=== PATIENT | male | born 1985 | race Caucasian/White ===

== ENCOUNTER → 2016-10-30 | Outpatient (CLI) | payer OTHER ==
--- NOTE | 2016-10-30 18:12 | REP ---
Clinical: Chest pain and shortness of breath. Technique: PA and lateral. Comparison: 09/29/2007. Findings: Moderate bibasilar atelectasis and small pleural reactions consistent with acute bronchitis. Mediastinum and cardiac silhouette normal. No significant effusion. No pneumothorax. Skeletal structures intact. Impression: Acute bronchitis with bibasilar atelectasis and small pleural reactions. Signed by Jonah Sinclair MD 10/30/2016 06:03 P
== END ==
LOC: M ADAMS 17:23
PROVIDERS: ATTEND Physician Assistant Medical
DX: R07.9 Chest pain, unspecified (principal)

== ENCOUNTER 2016-11-16 09:09 | Emergency (ER) | payer OTHER ==
[~2016-11-16] VITALS: Ht 170.2 cm; Wt 82.1 kg
[2016-11-16 09:09] VITALS: BP 157/91
[2016-11-16] MEDS ORDERED: probiotics (09:16)
[2016-11-16] MEDS ORDERED: ALEV220T26 PO (09:16)
--- NOTE | 2016-11-16 09:57 | REP ---
CHEST PA AND LATERAL: 11/16/2016. Comparison 09/29/2007. Clinical history: Chest wall pain, recent bronchitis. Findings: Two-view show the lungs hypoinflated. There is some atelectatic change at the right base but more extensive atelectasis and infiltrate with effusion on the left. Effusion may be partly loculated laterally. There is no cardiomegaly or edema. Impression: 1. Left base infiltrates involving the lingula and lower lobe with small to moderate left effusion. It may in part be loculated. 2. Some atelectatic change on the right above the diaphragm but mild. No cardiomegaly or edema. Signed by Cam Carney MD 11/16/2016 03:01 P
[2016-11-16] MEDS ORDERED: ZITHTAB PO (10:12)
[2016-11-16] MEDS ORDERED: AZITHROMYCIN 250 MG TAB PO ONE (10:15)
== END 2016-11-16 10:24 | disposition home or self-care (01) ==
LOC: M ED 10:13
DX: J18.9 Pneumonia, unspecified organism (principal)

== ENCOUNTER 2017-01-22 07:07 | Observation (INO) | payer OTHER ==
[~2017-01-22] VITALS: Ht 170.2 cm; Wt 83.5 kg
[~2017-01-22 07:07] MED LIST: ALEV220T26 PO; ZITHTAB PO; probiotics
[2017-01-22 07:54] LABS: BASO % 0.2 % (0.0-1.0); EOS # 0.1 K/mm3 (0.0-0.50); EOS % 1.8 % (0.0-3.0); LARGE UNSTAINED CELL # 0.1 K/mm3 (0.0-0.4); LARGE UNSTAINED CELL % 0.8 % (0.0-4.0); LYMPH # 1.1 K/mm3 (1.5-4.5); LYMPH % 13.4 % (24.0-44.0); MEAN CORPUSCULAR HEMOGLOBIN 30.9 pg (27.0-33.0); MEAN CORPUSCULAR HGB CONC 35.9 g/dl (32.0-36.5); MEAN CORPUSCULAR VOLUME 86.1 fl (80.0-96.0); MONO # 0.5 K/mm3 (0.0-0.8); NEUTROPHILS # 6.3 K/mm3 (1.8-7.7); NEUTROPHILS % 77.8 % (36.0-66.0); PLATELET COUNT, AUTOMATED 178 k/mm3 (150-450); RED CELL DISTRIBUTION WIDTH 13.5 % (11.5-14.5); WHITE BLOOD COUNT 8.1 K/mm3 (4.0-10.0)
--- NOTE | 2017-01-22 07:54 | REP ---
Clinical: Chest pain. Comparison: 11/16/2016. Findings: Bibasilar linear fibroatelectatic changes and right lower lobe infiltrate/atelectasis suggest acute / chronic findings when compared to prior examination. No obvious effusion. No pneumothorax. Mediastinum and cardiac silhouette stable and within normal limits. Impression: Acute and/or chronic bilateral atelectasis and right lower lobe infiltrate cannot be excluded. Signed by Jonah Sinclair MD 01/22/2017 07:45 A
[2017-01-22 08:03] LABS: INR 0.99
[2017-01-22 08:14] LABS: ALBUMIN 3.9 GM/DL (3.2-5.2); ALBUMIN/GLOBULIN RATIO 0.89 (1.00-1.93); ALKALINE PHOSPHATASE 98 U/L (45-117); ALT/SGPT 39 U/L (12-78); ANION GAP 5 MEQ/L (8-16); AST/SGOT 20 U/L (15-37); BILIRUBIN,DIRECT 0.2 MG/DL (0.0-0.2); BLOOD UREA NITROGEN 11 MG/DL (7-18); CALCIUM LEVEL 9.1 MG/DL (8.5-10.1); CARBON DIOXIDE LEVEL 27 MEQ/L (21-32); CHLORIDE LEVEL 105 MEQ/L (98-107); CREATININE FOR GFR 0.96 MG/DL (0.70-1.30); FREE T4 0.93 NG/DL (0.76-1.46); GLOMERULAR FILTRATION RATE > 60.0 (>60); GLUCOSE, FASTING 111 MG/DL (70-105); POTASSIUM SERUM 3.6 MEQ/L (3.5-5.1); SODIUM LEVEL 137 MEQ/L (136-145); TOTAL PROTEIN 8.3 GM/DL (6.4-8.2)
[2017-01-22] MEDS ORDERED: ACETAMINOPHEN 325 MG TAB PO ONE (08:30)
[2017-01-22] MEDS ORDERED: ISOVUE-370 76% 100ML VIAL (Q9967) As Ordered ONE ×2 (08:36→10:46)
--- NOTE | 2017-01-22 09:29 | ECGEPIP ---
Stationary ECG Study [facility] - ED Test Date: 2017-01-22 Pat Name: DILLAN STOUT Department: Room: - Gender: M Recreation Therapist: sb : [id number] Requested By: Jack Stern Order Number: [id number] Reading MD: Petty Koo Measurements Intervals [place] Rate: 103 P: 45 TX: 143 QRS: 46 QRSD: 108 T: 10 QT: 341 QTc: 446 Interpretive Statements SINUS TACHYCARDIA NONSPECIFIC T-WAVE ABNORMALITY ABNORMAL RHYTHM ECG NO PRIOR FOR COMPARISON Electronically Signed On 01-22-2017 9:28:58 EDT by Petty Koo
[2017-01-22] MEDS ORDERED: NS 1,000 ML IV ONE (09:30)
--- NOTE | 2017-01-22 09:36 | REP ---
CT ANGIOGRAM CHEST: TECHNIQUE: Axial contrast enhanced images from the thoracic inlet to the upper abdomen using 100 mL Isovue 370 intravenous contrast material with multiplanar reformations. There is excessive patient motion, which extremely limits the exam. I cannot rule out pulmonary embolism. Repeat exam is recommended. There is no definite adenopathy in the chest. The heart is not enlarged. There is no pleural or pericardial effusion. Patchy infiltrates/atelectasis are seen in each lung base. Pleural based nodular opacity in the lingula measures 1.7 cm in diameter and followup is recommended. The visualized upper abdominal structures appear unremarkable. IMPRESSION: Extremely limited exam due to patient motion. I cannot rule out pulmonary embolism. Recommend repeat exam when the patient is able to suspend respirations and remain motionless. Bibasilar infiltrates/atelectasis. Left lingular pleural-based nodular opacity 1.7 cm in diameter. Recommend short-term followup in 2 to 3 months. Signed by Bennie Wright MD 01/22/2017 05:00 P
[2017-01-22] MEDS ORDERED: AZITHROMYCIN INJ 500 MG, VIAL MATE ADAPTER 1 EACH in D5W 250 ML IV ONE (12:15)
[2017-01-22] MEDS ORDERED: cefTRIAXone SOD 1 GM in D5W MINI-BAG PLUS 50 ML IV ONE (12:15)
[2017-01-22] MEDS ORDERED: SYST1SOL OU (13:03)
[2017-01-22] MEDS ORDERED: ONDANSETRON 4MG/2ML VIAL (J2405) IV PRN (14:00)
[2017-01-22] MEDS ORDERED: ELIQ5TAB PO (14:08)
[2017-01-22] MEDS ORDERED: POLYVINYL ALCOHOL OPHTH SOLN 15 ML(LIQUITEARS) OU PRN (14:15)
--- NOTE | 2017-01-22 15:29 | HPE ---
DATE OF ADMISSION: 01/22/2017 PRIMARY CARE PROVIDER: The patient does not have a primary care provider. CHIEF COMPLAINT: Chest discomfort. HISTORY OF PRESENT ILLNESS: Mr. Bernstein is a 31-year-old male with no past medical history, who presented to the emergency room due to experiencing chest pain and discomfort. The patient expressed his symptoms started in mid September when he noticed that he had shortness of breath when he was walking. The patient expressed that the next day he noticed one episode of hemoptysis when he was taking shower; however, the patient did not pay attention to it. The patient also started having left sided chest pain. The patient went to urgent care and was started on Cefdinir for possibility of bronchitis. The patient expressed that a few days after starting Cefdinir he started having diarrhea and he lost about 20 pounds due to having diarrhea. The patient went back to the urgent care due to having left chest pain, as well as coughing. Urgent care encouraged him to go to the hospital. On 11/16/2016, the patient came to the [facility] Emergency room and was diagnosed with pneumonia. The patient was discharged with azithromycin. The patient expressed that after starting this medication, the patient felt better. However, this weekend, the patient noticed that he started having right chest pain. The patient expressed that the right chest pain was 5 or 6 out of 10, achy pain, which increased with activity and taking deep breath. The patient also expressed that he also developed dyspnea, as well as coughing. The patient expressed that he continued to have left chest pain; however, left chest pain was decreased. The patient expressed that he waited because he thought the chest pain would go away; however, it continued to increase. His mother encouraged him to come to the emergency room. The patient denies fever, chills or night sweats. The patient denies lightheadedness or dizziness. The patient denies sick contacts. The patient denies syncope or seizure type activities. The patient also denies rash or lesions anywhere in his body. 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 Also, the patient expressed that the industrial boilers have two layers of isolation which includes Fiberfrax blankets, which are made of silicone, and the patient does not use a mask during his work because he is not required. However, the patient expressed that the factory does not use equipment properly. The patient expressed that for his chest discomfort he was using naproxen sodium 220 mg by mouth as needed for pain. SOCIAL HISTORY: The patient lives with his and his 2-1/2 year old son, who is healthy. The patient denies smoking cigarettes; however, the patient used to chew tobacco, about one can a week for 6 years; however, the patient has not used tobacco for the past year. The patient drinks alcohol occasionally. The patient was smoking marijuana ten years ago for a total of 2 years. The patient has one dog. The patient has traveled to [place] three years ago. The patient is working in the [employer], which includes welding; however, the patient is not participating in the welding station. The patient does not wear a mask because it is not required to wear it. However, the patient expressed that the company also included insulator blankets, which have Fiberfrax blankets, which are made out of silicones. In the factory they do not use the equipment appropriately. FAMILY HISTORY: The patient has one son who is 2-1/2 years old and he is healthy. The patient has two brothers who are healthy. The patient's father due to pulmonary embolism at age 53 secondary to femoral fracture, as well as having liver disease secondary to drinking. The patient's mother is healthy. ALLERGIES: No known allergies. HOME MEDICATIONS: - naproxen sodium 220 mg tablet as needed for pain or fever - polyethylene glycol one drop both eyes as needed for dry eyes. PAST MEDICAL HISTORY: None. PAST SURGICAL HISTORY: Left wrist removal of a ganglion cyst. REVIEW OF SYSTEMS: GENERAL: The patient denies fever, chills, night sweats, weight loss, or weight gain. However, the patient expressed that back at the end of November/beginning of October that the patient has lost about 20 pounds because the patient was on antibiotic (Cefdinir), which caused him to have diarrhea. HEENT: The patient denies acute vision or hearing changes. The patient denies headaches, lightheadedness, or dizziness. The patient also no problems with chewing food or sinusitis. NECK: The patient denies loss of range of motion of his neck. HEART: The patient denies palpitations, racing or skipping heart beat. However , the patient has been experiencing chest pain and discomfort on both left and right sides of his chest pain with right more than left. The patient described the pain as achy, 5 out of 6 with radiation to the back. LUNGS: The patient experienced shortness of breath with cough for the past three days. The patient believes that his cough has increased, as well as shortness of breath; however, he believes that the shortness of breath is because taking a deep breath is painful. ABDOMEN: The patient denies abdominal pain, nausea, vomiting, diarrhea, constipation, melena, hematochezia or hematemesis. NEUROLOGIC: The patient has no history of transient ischemic attack, seizure type activity. PHYSICAL EXAMINATION: VITAL SIGNS: Temperature 97.5, pulse 113, respiratory rate 16, blood pressure 152/94, pulse oximetry 97% on room air. GENERAL APPEARANCE: The patient was lying in bed in no acute distress. The patient was awake, alert and oriented to time, place and person. HEENT: Normocephalic, atraumatic. Pupils are equal and reactive to light. Oral mucosa is moist. NECK: Soft, supple. No lymphadenopathy or thyromegaly. No jugular venous distention (JVD). HEART: Regular rate and rhythm. Normal S1, S2. ABDOMEN: Soft, nontender. Positive bowel sounds in all quadrants. LUNGS: Clear breath sounds bilaterally. Good air movement. CHEST: The patient has tenderness to palpation of his ribcage, mostly on the left than right anterior surface. EXTREMITIES: The patient has very mild pitting edema in both lower extremities. +2 pulses in both lower extremities. The patient has normal range of motion in both upper and lower extremities. The patient has normal strength in both lower extremities. Homans sign was negative. NEUROLOGIC: Cranial nerves were intact. No focal deficiencies. : no palpable mass was notice on testis, also no rash or lesion were notice on scrotum. LABORATORY DATA: White blood cells 8.1, red blood cells 5.52, hemoglobin 17.1, hematocrit 47.6, MCV 86.1, MCH 30.9, MCHC 35.9, RDW 13.5, platelet count 178, neutrophil percentage 77.8, lymphocyte percentage 13.4, monocyte percentage 6.0, basophil percentage 0.2, leukocyte percentage 0.8. PT 13.2, INR 0.99, PTT 25.4, D-dimer 749.8. Sodium 137, potassium 3.6, chloride 105, carbon dioxide 27, anion gap 5, BUN 11, creatinine 0.96, GFR more than 60, fasting glucose 111, calcium 9.1, total bilirubin 0.1, direct bilirubin 0.2, AST 20, ALT 39, alkaline phosphatase 98, total creatinine kinase 160, CK-MB 1, CK-MB relative index 0.62, troponin I less than 0.02, total protein 8.3, albumin 3.9, TSH 1.230, Free T4 0.93. Blood culture is pending at this time. IMAGING TECHNIQUES: Chest x-ray with acute on chronic bilateral atelectasis and right lower lobe infiltration cannot be excluded. CT angio indicated extremely limited exam due to the patient's movement pulmonary embolism cannot be ruled out; however, there is bibasilar infiltration, atelectasis , left inguinal pleural base, nodular opacity 1.7 cm in diameter. Repeat CT angio indicated pulmonary embolism with cut off sign at the origin of the left middle lobe artery, tiny pulmonary embolism in the third order branch of the right upper lobe and the third branch of the right lower lobe and the right middle lobe infiltration and the left lower lobe infiltration. Pleural based mass in the lingual. ASSESSMENT AND PLAN: 1. Chest pain. this is possibly secondary to pulmonary embolism. we have calculated Wells' score, which indicated moderate probability for pulmonary embolism.. At this time, we have started the patient on Eliquis. Also, we have ordered lower extremity ultrasound, result is pending at this time. Also, we have ordered coagulability panel, including lupus type anticoagulation, fibrinogen, factor V Leiden, factor II prothrombin, protein S, protein C, antithrombin III panel. The results are pending. Examination of testes did not indicate any abnormal mass. At this time, we will continue the patient on 10 mg of Eliquis twice a day for 7 days. After that, the patient will be started on 5 mg Eliquis twice a day. However, the patient will be seen by Dr. Mart. Also, cardiac marker was negative and EKG did not show any new findings and it only indicated sinus tachycardia, possibly secondary to pulmonary embolism. However, we will repeat the cardiac marker for two more readings every 6 hours. At this time, we admit the patient for observation. We will continue managing the patient's pain with Percocet and morphine as needed. 2. Left lingual pleural based nodule. CT angio indicated left lingual pleural based nodular opacity of 1.7 cm in diameter. We have consulted Dr. Mart. The patient will be followed by Dr. Mart. 3. Right middle lobe infiltration and left lower lobe infiltration. This is possibly secondary to pulmonary embolism. The patient is afebrile and does not have leukocytosis. The patient is asymptomatic and is on room air. At this time, we did not start patient on antibiotic. 4. Deep vein thrombosis (DVT) prophylaxis. The patient is on Eliquis. 5. Dry eyes: patient is on polyethylene glycol one drop both eyes as needed for dry eyes. My preceptor for this patient encounter was Dr. Lopez. The preceptor was physically present in the building during the encounter and was fully available. As needed, all aspects of the patient interview, examination, medical decision making process, and medical care plan development were reviewed and approved by the preceptor. The preceptor is aware and concurs with the plan as stated in the body of this note and will attest to such by his/her cosignature. Attending note: I have examined this patient independently and reviewed the chart and diagnostic studies. I have had a detailed discussion with the resident regarding the plan as outlined above. All aspects of the history and physical are reflective of our discussion. PADMINI
--- NOTE | 2017-01-22 15:43 | REP ---
HISTORY: History of pulmonary embolus. COMPARISON: None. TECHNIQUE: Multiple ultrasonographic images of the deep venous structures of the bilateral thighs were obtained from the common femoral vein to the popliteal vein along with Doppler interrogation and color flow Doppler images. FINDINGS: There is no abnormal echogenic material seen within any of the visualized deep venous structures that would suggest acute thrombosis. Coaptation is unremarkable throughout. Doppler interrogation shows an expected response to respiratory variability and augmentation. The color flow images show what appears to be a normal vascular pattern throughout. IMPRESSION: There is no ultrasonographic evidence of deep venous thrombosis involving any of the visualized deep venous structures of the bilateral thighs, as described above. Signed by Carson Andre DO 01/22/2017 04:03 P
[2017-01-22] MEDS: PERCOCET 5MG/325MG TAB PO PRN (19:31)
[2017-01-22] MEDS: MORPHINE 2 MG/ML 1ML SYRINGE IV PRN ×2 (19:32→21:37)
[2017-01-22 21:00] VITALS: BP 139/90
[2017-01-22 21:17] VITALS: PULSE 99
[2017-01-22] MEDS: APIXABAN 5 MG TAB (ELIQUIS) PO SCH (21:38)
[2017-01-23] VITALS (9 sets, daily range): BP systolic 107–154; BP diastolic 65–94; PULSE 93–97
[2017-01-23] MEDS: PERCOCET 5MG/325MG TAB PO PRN ×3 (05:18→17:27)
[2017-01-23 05:36] LABS: BASO % 0.2 % (0.0-1.0); EOS # 0.1 K/mm3 (0.0-0.50); EOS % 0.7 % (0.0-3.0); LARGE UNSTAINED CELL # 0.1 K/mm3 (0.0-0.4); LARGE UNSTAINED CELL % 0.7 % (0.0-4.0); LYMPH # 0.9 K/mm3 (1.5-4.5); LYMPH % 8.6 % (24.0-44.0); MEAN CORPUSCULAR HEMOGLOBIN 31.2 pg (27.0-33.0); MEAN CORPUSCULAR HGB CONC 36.3 g/dl (32.0-36.5); MEAN CORPUSCULAR VOLUME 85.8 fl (80.0-96.0); MONO # 0.7 K/mm3 (0.0-0.8); MONO % 6.1 % (0.0-5.0); NEUTROPHILS # 9.2 K/mm3 (1.8-7.7); NEUTROPHILS % 83.7 % (36.0-66.0); PLATELET COUNT, AUTOMATED 196 k/mm3 (150-450); RED CELL DISTRIBUTION WIDTH 13.4 % (11.5-14.5)
[2017-01-23 05:58] LABS: ALBUMIN 3.5 GM/DL (3.2-5.2); ALKALINE PHOSPHATASE 86 U/L (45-117); ALT/SGPT 39 U/L (12-78); ANION GAP 5 MEQ/L (8-16); AST/SGOT 19 U/L (15-37); BILIRUBIN,TOTAL 1.5 MG/DL (0.2-1.0); BLOOD UREA NITROGEN 7 MG/DL (7-18); CALCIUM LEVEL 9.1 MG/DL (8.5-10.1); CARBON DIOXIDE LEVEL 28 MEQ/L (21-32); CHLORIDE LEVEL 104 MEQ/L (98-107); CREATININE FOR GFR 0.89 MG/DL (0.70-1.30); GLOMERULAR FILTRATION RATE > 60.0 (>60); GLUCOSE, FASTING 114 MG/DL (70-105); MAGNESIUM LEVEL 2.3 MG/DL (1.8-2.4); POTASSIUM SERUM 4.5 MEQ/L (3.5-5.1); SODIUM LEVEL 137 MEQ/L (136-145); TOTAL PROTEIN 7.9 GM/DL (6.4-8.2)
[2017-01-23] MEDS: ACETAMINOPHEN TAB 650MG DOSE (2X325MG) PO PRN (07:42)
[2017-01-23] MEDS: APIXABAN 5 MG TAB (ELIQUIS) PO SCH ×2 (07:42→21:10)
[2017-01-23] MEDS ORDERED: ELIQ5TAB PO (12:27)
--- NOTE | 2017-01-23 12:40 | IPNPDOC ---
Text Note Date of Service The patient was seen on 01/23/17. NOTE Subjective: Patient is a 31 year old male with no PMHx who presented to the ER with chest pain / discomfort. Patient has a history of a pneumonia in 11/2016 after he failed to improved as an outpatient. At that point he was came to the ER and was diagnosed with a pneumonia. Since then he has been experiencing chest pain. He came in for evaluation again and was found to have a PE on CTA. He was also noted to have a lung lesion at the pleura of 1.7cm. Patient was seen and examined at the bedside. Currently he notes that the pain is improving with his current medications. Objective: Vitals (See below) General: Lying in bed, no acute distress, comfortable, AAOx3 HEENT: NC, AT CVS: RRR, +S1S2 Lungs: Fair air entry b/l, -w/r/r Abdomen: Soft, ND, NT, +BSx4 Extremities: +PPx4, - Edema, - Calf tenderness Assessment and plan: 1. Chest pain - likely 2/2 Pulmonary embolism - chest pain is resolving / controlled with current pain regimen - physical unrevealing, saturating well and hemodynamically stable - CTA chest 01/22: PE found with cutoff sign at Right middle lobe artery, right middle lobe infiltrate / leb lower lobe infiltrate, pleural based mass in lingula - Hypercoagulability workup pending - c/w Eliquis for anticoagulation - Discussed with PFS for pre-authorization of medication coverage - c/w Percocet and Morphine PRN 2. Left lingula pleural based nodule - CTA; suggest size of 1.7cm - Dr. Mart to evaluate patient 3. Bilateral infiltrates - less likely 2/2 pneumonia - no cough, sob, fever or sputum production - will continue to monitor for now 4. Dry eyes - c/w Polyethylene glycol drops 5. DVT prophylaxis - on full anticoagulation with Eliquis VS,Fishbone, I+O VS, Fishbone, I+O Laboratory Tests 01/23/17 05:07 Red Blood Count 5.01, Mean Corpuscular Volume 85.8, Mean Corpuscular Hemoglobin 31.2, Mean Corpuscular Hemoglobin Concent 36.3, Red Cell Distribution Width 13.4 , Neutrophils (%) (Auto) 83.7 H, Lymphocytes (%) (Auto) 8.6 L, Monocytes (%) ( Auto) 6.1 H, Eosinophils (%) (Auto) 0.7, Basophils (%) (Auto) 0.2, Neutrophils # (Auto) 9.2 H, Lymphocytes # (Auto) 0.9 L, Monocytes # (Auto) 0.7, Eosinophils # (Auto) 0.1, Basophils # (Auto) 0.0, Calcium Level 9.1, Aspartate Amino Transf (AST/SGOT) 19, Alanine Aminotransferase (ALT/SGPT) 39, Alkaline Phosphatase 86, Total Bilirubin 1.5 H, Total Protein 7.9, Albumin 3.5 Vital Signs Date Time Temp Pulse Resp B/P (MAP) Pulse Ox O2 Delivery O2 Flow Rate FiO2 01/23/17 08:00 99.1 87 19 153/69 (97) 94 Nasal Cannula 2.0 I&O- Last 24 Hours up to 6 AM 01/23/17 06:00 Intake Total 1290 ml Output Total 1200 ml Balance 90 ml ANISHA AGUILAR MD Jan 23, 2017 12:40
--- NOTE | 2017-01-23 13:56 | REP ---
CT of the chest, CT pulmonary angiography: Comparison is from 08:41 a.m. earlier today. The respiratory motion artifact is decreased on the current study. I believe there is a cutoff at the origin of the lobar artery supplying the right middle lobe, compatible with pulmonary embolus. Additionally, I suspect there are a tiny emboli in a third order branch of the right lower lobe and a tiny third order branch of the right upper lobe. No emboli are identified on the left. There is an infiltrate in the right middle lobe and there is infiltrate in the left lower lobe. Pleural-based mass like density measuring 1.7 cm is again noted in the lingula on image 60. Follow up of this density is recommended. There are no remote comparison CTs. The thoracic aorta is unremarkable. Cardiac size appears upper normal. There is no pericardial effusion. The visualized upper abdominal contents are unremarkable. Impression: Pulmonary embolus with cutoff sign at the origin of the right middle lobe artery. Tiny pulmonary emboli in the third order branch of the right upper lobe and third branch of the right lower lobe. Right middle lobe infiltrate and left lower lobe infiltrate. Pleural-based mass in the lingula requiring follow-up. Signed by Bennie Moreno MD 01/23/2017 01:48 P
[2017-01-23] MEDS ORDERED: SLF 3 ML SYR IV PRN (16:00)
--- NOTE | 2017-01-23 19:27 | CR ---
DATE OF CONSULTATION: 01/23/2017 ATTENDING PHYSICIAN: Dr. Gabriel REASON FOR CONSULTATION: Abnormal CT scan. HISTORY OF PRESENT ILLNESS: Mr. Bernstein is a delightfully pleasant 31-year-old gentleman accompanied by family. He has essentially minimal smoking history after he was in high school. He was using smokeless tobacco but has quit that as well. 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 He describes himself as being in otherwise very good health until returning from a trip to [place] end of October. He said they traveled by car and actually drove straight through on the way home. When they arrived home, they said everyone was sick with somewhat of a cough, but he had noticed the fairly acute onset of pleuritic chest pain. He noticed he was short of breath with it. Symptoms persisted despite everyone else who was "ill," being back to baseline. He was seen in urgent care on October 30. Chest x-ray at that time showed some bibasilar atelectasis and what looked like some early pleural changes on the left. He was treated with cefdinir. Developed significant diarrhea but says, again, everyone around him has some type of enteritis. His chest pain persisted. It seemed to move around but really more focused on the left. He was then seen here on November 16. Chest x-ray at that time showed a partially loculated left pleural effusion with increased changes on the left. Again some atelectatic changes at the right base. He said he felt somewhat better, but his pain persisted and actually got a little worse. He said most of his complaints regarding feeling short of breath were more on the basis of he felt as though he could not take a deep breath on the basis of comfort. He presented again yesterday. Chest x-ray showed marked improvement in his pleural effusion. Overall very poor inspiratory effort and bibasilar atelectatic changes again noted. He then underwent CT angiogram. This was felt to show a pulmonary embolus, at least on the right, and some subsegmental arterial embolic findings, and he was admitted for observation. ALLERGIES: None. MEDICATIONS AT HOME: Some nonsteroidals. PAST MEDICAL HISTORY: Otherwise fairly unremarkable. SOCIAL HISTORY: Lives at home with supportive family. Tobacco as outlined above. Social alcohol at best. Occupational as outlined above. FAMILY HISTORY: Noncontributory. On questioning the parents shows no significant family history of any pulmonary complaints of connective tissue disease. REVIEW OF SYSTEMS: As per the history of present illness (HPI). Otherwise: CONSTITUTIONAL: Significant for fever when he was originally ill in October and maybe again in November. HEENT: Unremarkable for double vision or blurry vision. PULMONARY: As per the history of present illness. CARDIAC: Unremarkable for angina or orthopnea. GASTROINTESTINAL: Unremarkable for any recent nausea. He had diarrhea early November. GENITOURINARY: Unremarkable for dysuria or urgency. NEUROLOGIC: Unremarkable for seizures, strokes. ENDOCRINE: Unremarkable for diabetes, thyroid disease. HEMATOLOGIC: Unremarkable for any bruising or bleeding. DERMATOLOGIC: Unremarkable rashes or psoriasis. MUSCULOSKELETAL: Unremarkable for any other new arthralgias or myalgias. PSYCHIATRIC: Unremarkable. PHYSICAL EXAMINATION: Currently reveals a pleasant, well-nourished, well-developed gentleman who appears his stated age. VITAL SIGNS Blood pressure 150 systolic, heart rate in the 80s and regular, respiratory rate 16-18 and unlabored, current temperature 99 degrees. HEENT: Otherwise generally normocephalic, and atraumatic. Pupils react. Neck reasonably supple for age. Trachea is midline. Mucous membranes moist. Anicteric sclerae. Airway is class 2. CHEST: Shows symmetric expansion. Breath sound intensity is reasonable. There is decreased breath sound intensity at both bases that does improve somewhat with deep inspiration. There are some fine opening crackles bilaterally, dependently also improved with deep inspiration. No rub or rhonchi. No convincing egophony. CARDIAC: Regular with no convincing murmur r gallop. Peripheral pulses palpable. No edema. ABDOMEN: Thin, soft, nontender with normoactive bowel sounds. No convincing organomegaly or masses. EXTREMITIES: No cyanosis or clubbing. NEUROLOGIC: He is awake, alert, appropriate. PSYCHIATRIC: Normal mood and affect. White blood cell count yesterday 8.1, today 11.0, today 83% segmented neutrophils. No bands. Hemoglobin 15.6, platelet count 196,000. Sodium 137, potassium 4.5, chloride 104, CO2 of 28, BUN 7, creatinine 0.8, BUN 7 , creatinine 0.89, glucose 114. Bilirubin 1.0 yesterday, 1.5 today. D-dimer yesterday 749.3. INR 0.99. CT scan is reviewed. Shows a large amount of motion artifact. Diffuse subsegmental atelectatic changes. There are at least two nodular densities on the left, the larger of the two just above the most inferior minor fissure. I cannot at all disagree with the radiologist's interpretation regarding embolic phenomenon. IMPRESSION: 1. Abnormal CT scan with suspected pulmonary emboli, nodular densities, and subsegmental atelectasis. 2. Pleuritic pain, much improved. RECOMMENDATIONS: At this point, I certainly wonder if this is not all related to embolic phenomenon. His symptoms began quite acutely after a very lengthy car ride. His x-ray within a week or two showed a significant pleural effusion on the left, which has since resolved. His pleuritic pain is currently much improved. Certainly his densities will need followup. They certainly may be areas left over from pulmonary infarct. He may have had a primary infectious process mid November, and, again, these may be sequelae of that. I am in agreement with therapy with Eliquis. I will see him in the outpatient setting with a repeat CT scan in the next 6-8 weeks. I would certainly be more than happy to re-evaluate him sooner if issues progress. We await the outcome of the above, and I will see him return at that time. Thank you for allowing me to participate in the care of the patient. PADMINI
[2017-01-23] MEDS: SLF 3 ML SYR IV SCH (21:11)
[2017-01-24] MEDS: PERCOCET 5MG/325MG TAB PO PRN ×2 (02:22→12:07)
[2017-01-24] MEDS: SLF 3 ML SYR IV SCH (05:26)
[2017-01-24 06:00] VITALS: BP 142/81
[2017-01-24 06:39] LABS: BASO % 0.1 % (0.0-1.0); EOS # 0.2 K/mm3 (0.0-0.50); EOS % 1.7 % (0.0-3.0); LARGE UNSTAINED CELL # 0.1 K/mm3 (0.0-0.4); LARGE UNSTAINED CELL % 1.1 % (0.0-4.0); LYMPH # 1.5 K/mm3 (1.5-4.5); LYMPH % 15.1 % (24.0-44.0); MEAN CORPUSCULAR HEMOGLOBIN 30.9 pg (27.0-33.0); MEAN CORPUSCULAR HGB CONC 35.8 g/dl (32.0-36.5); MEAN CORPUSCULAR VOLUME 86.3 fl (80.0-96.0); MONO # 0.7 K/mm3 (0.0-0.8); MONO % 7.5 % (0.0-5.0); NEUTROPHILS # 6.8 K/mm3 (1.8-7.7); NEUTROPHILS % 74.5 % (36.0-66.0); PLATELET COUNT, AUTOMATED 185 k/mm3 (150-450); RED CELL DISTRIBUTION WIDTH 13.5 % (11.5-14.5); WHITE BLOOD COUNT 9.1 K/mm3 (4.0-10.0)
[2017-01-24 07:04] LABS: ALBUMIN 3.3 GM/DL (3.2-5.2); ALBUMIN/GLOBULIN RATIO 0.92 (1.00-1.93); ALKALINE PHOSPHATASE 117 U/L (45-117); ALT/SGPT 50 U/L (12-78); ANION GAP 6 MEQ/L (8-16); AST/SGOT 29 U/L (15-37); BILIRUBIN,TOTAL 1.3 MG/DL (0.2-1.0); BLOOD UREA NITROGEN 8 MG/DL (7-18); CALCIUM LEVEL 8.9 MG/DL (8.5-10.1); CARBON DIOXIDE LEVEL 30 MEQ/L (21-32); CHLORIDE LEVEL 105 MEQ/L (98-107); CREATININE FOR GFR 0.86 MG/DL (0.70-1.30); GLOMERULAR FILTRATION RATE > 60.0 (>60); GLUCOSE, FASTING 98 MG/DL (70-105); MAGNESIUM LEVEL 2.2 MG/DL (1.8-2.4); POTASSIUM SERUM 4.4 MEQ/L (3.5-5.1); SODIUM LEVEL 141 MEQ/L (136-145); TOTAL PROTEIN 6.9 GM/DL (6.4-8.2)
[2017-01-24] MEDS: APIXABAN 5 MG TAB (ELIQUIS) PO SCH (08:32)
[2017-01-24] MEDS: ACETAMINOPHEN TAB 650MG DOSE (2X325MG) PO PRN (09:24)
[2017-01-24] MEDS ORDERED: PERCOCET PO (09:46)
[2017-01-24] MEDS ORDERED: ACET65TA PO (09:46)
--- NOTE | 2017-01-24 15:32 | DSES ---
DATE OF ADMISSION: 01/22/2017 DATE OF DISCHARGE: 01/24/2017 ADMITTING PHYSICIAN: Sami Gabriel MD DICTATING PHYSICIAN: Sami Gabriel MD PRIMARY CARE PROVIDER: Unknown. REFERRING PHYSICIAN: None. CONSULTING PHYSICIAN: Dr. Mart CONDITION ON DISCHARGE: Stable. FINAL DIAGNOSIS: Pulmonary embolism. PROCEDURES: None. HISTORY OF PRESENT ILLNESS: The patient is a 31-year-old male with no past medical history, who presented to the emergency room with chest pain and discomfort. The patient has a history of pneumonia in November 2016 after he failed to improve as an outpatient. At that point he came to the emergency room because he had no improvement in his symptoms and then he was diagnosed with pneumonia. Since that point, he has been experiencing chest pain and he came in for further evaluation and he was found to have a pulmonary embolism on the CT scan done in the emergency room. The patient also was noted to have a lung lesion on his pleura of about 1.7 cm. HOSPITAL COURSE: 1. Chest pain, likely secondary to pulmonary embolism. Chest pain is resolved. Controlled with current pain medications. Physical is unrevealing. Saturating well and hemodynamically stable. CT of the chest done on 01/22/2017 revealed a pulmonary embolism found in the right middle lobe artery, right middle lobe infiltrate, and left lower lobe infiltrate were also noted. Pleural based mass in the lingual was noted. Hypercoagulable workup has been pending. The patient was started on Eliquis and patient and family services (PFS) was contacted for preauthorization, which was acquired. The patient was put on Percocet and morphine for pain control. 2. Left lingual pleural based nodule. CT suggested a size of 1.[address] Mart has come and spoken with the patient and suggested that he have a followup CT scan. The patient will followup with Dr. Mart as an outpatient. 3. Bilateral infiltrates, likely secondary to pneumonia. Cough and shortness of breath is noted. Fever or sputum production was noted. At this point, antibiotics were not started. The patient had received a dose of antibiotics in the emergency room, but from that point had not been continued. 4. Dry eyes. Continue with polyethylene glycol drops. 5. Deep vein thrombosis (DVT) prophylaxis. He has been on full anticoagulation with Eliquis. DISCHARGE MEDICATIONS: The patient will be discharged home on the following medications: - Tylenol 650 mg by mouth every 4 hours as needed mild pain or fever - Eliquis as directed - Percocet one tablet by mouth every 6 hours as needed for moderate pain Continue medications include: - polyethylene glycol eye drops Stopped medications include: - naproxen DISCHARGE INSTRUCTIONS: The patient has been advised to followup with his primary care provider and pulmonary doctor within the next 7 days. He has been advised to remain compliant with treatment plan and medication and return to the emergency room if he experiences any problems. Time spent on discharge: 35 minutes.
[2017-01-29 00:06] LABS: HEPARIN LEVEL ANTI Xa <0.10 IU/mL (.)
== END 2017-01-24 14:40 | disposition home or self-care (01) ==
LOC: M ED 07:52 → M ED INP 13:17 → M PCU 20:35 → M MS5PR 01-23 22:17
PROVIDERS: ADMIT Hospitalist; ATTEND Internal Medicine
DX: I26.99 Other pulmonary embolism without acute cor pulmonale (principal); R91.1 Solitary pulmonary nodule; R07.9 Chest pain, unspecified; R91.8 Other nonspecific abnormal finding of lung field; R06.02 Shortness of breath; R05 Cough; H04.123 Dry eye syndrome of bilateral lacrimal glands; Z87.891 Personal history of nicotine dependence; Z79.1 Long term (current) use of non-steroidal anti-inflammatories (NSAID); Z79.899 Other long term (current) drug therapy; Z87.09 Personal history of other diseases of the respiratory system
CPT/HCPCS: 36415; 71010; 71275; 80048; 80053; 80076; 81240; 81241; 82550; 82553; 83735; 84439; 84443; 85025; 85300; 85301; 85303; 85305; 85379; 85384; 85520; 85610; 85730; 87040; 93005; 93041; 93970; 94760; 96361; 96365; 96375; 96376; 99285; J0456; J0696; J2405; Q9967

== ENCOUNTER → 2017-03-04 | Outpatient (CLI) | payer OTHER ==
[~2017-03-04] MED LIST changes: +ELIQ5TAB PO; +MAPA325T3 PO; +PERCOCET PO; +SYST1SOL OU
--- NOTE | 2017-03-05 03:33 | REP ---
Clinical: Follow up consolidations and nodule. Comparison: 01/22/2017. Findings: Current examination demonstrates overall improved aeration with decreased areas of consolidation, atelectasis and ground-glass opacities. Small residual areas of consolidation in the right middle lobe and lingula as well as linear atelectasis/scarring in the left upper lobe with trace basilar atelectasis currently identified. The previously noted lingular mass density is decreased and likely represents areas of resolving consolidation. No pleural effusion or pneumothorax. No obvious adenopathy. Tracheobronchial tree is patent. No significant new process identified. The mediastinum demonstrates actively normal heart/pericardium and thoracic aorta. Surrounding musculoskeletal structures are intact. Limited upper abdomen demonstrates normal bilateral adrenal glands. Impression: Residual areas of consolidation and atelectasis/scarring primarily in the right middle lobe, lingula and left upper lobe. Findings appear improved when compared to prior examination dated 01/22/2017. Reevaluation in 3 months to confirm complete resolution may be warranted. Signed by Jonah Sinclair MD 03/05/2017 03:24 A
== END ==
LOC: M RAD 16:53
PROVIDERS: ATTEND Internal Medicine Pulmonary Disease
DX: R91.8 Other nonspecific abnormal finding of lung field (principal); J98.11 Atelectasis; J98.4 Other disorders of lung

== ENCOUNTER → 2017-12-02 | Outpatient (CLI) | payer OTHER | LOC: M RAD 16:32 | DX: M79.9 Soft tissue disorder, unspecified (principal) | CPT/HCPCS: 76705 ==

== ENCOUNTER → 2018-06-20 | Outpatient (REF) | payer OTHER ==
[2018-06-20 19:37] LABS: HEMATOCRIT 43.3 % (42.0-52.0); HEMOGLOBIN 15.4 g/dl (13.5-17.5); MEAN CORPUSCULAR HEMOGLOBIN 31.6 pg (27.0-33.0); MEAN CORPUSCULAR HGB CONC 35.6 g/dl (32.0-36.5); MEAN CORPUSCULAR VOLUME 88.7 fl (80.0-96.0); PLATELET COUNT, AUTOMATED 202 10^3/uL (150-450); RED BLOOD COUNT 4.88 10^6/uL (4.30-6.10); RED CELL DISTRIBUTION WIDTH 11.6 % (11.5-14.5); WHITE BLOOD COUNT 6.5 10^3/uL (4.0-10.0)
[2018-06-20 19:48] LABS: ALBUMIN 4.2 GM/DL (3.2-5.2); ALKALINE PHOSPHATASE 74 U/L (45-117); ALT/SGPT 46 U/L (12-78); ANION GAP 6 MEQ/L (8-16); AST/SGOT 26 U/L (7-37); BILIRUBIN,TOTAL 0.4 MG/DL (0.2-1.0); BLOOD UREA NITROGEN 20 MG/DL (7-18); CALCIUM LEVEL 9.2 MG/DL (8.5-10.1); CARBON DIOXIDE LEVEL 28 MEQ/L (21-32); CHLORIDE LEVEL 107 MEQ/L (98-107); CREATININE FOR GFR 0.94 MG/DL (0.70-1.30); GLOMERULAR FILTRATION RATE > 60.0 (>60); GLUCOSE, FASTING 88 MG/DL (70-100); POTASSIUM SERUM 3.6 MEQ/L (3.5-5.1); SODIUM LEVEL 141 MEQ/L (136-145)
== END ==
LOC: M SFHCADAM 16:42
DX: Z86.711 Personal history of pulmonary embolism (principal)

== ENCOUNTER → 2019-01-22 | Outpatient (REF) | payer OTHER ==
[2019-01-22 19:26] LABS: ALBUMIN 3.6 GM/DL (3.2-5.2); ALT/SGPT 39 U/L (12-78); BILIRUBIN,TOTAL 0.6 MG/DL (0.2-1.0); BLOOD UREA NITROGEN 18 MG/DL (7-18); CALCIUM LEVEL 9.2 MG/DL (8.5-10.1); CARBON DIOXIDE LEVEL 28 MEQ/L (21-32); CHLORIDE LEVEL 105 MEQ/L (98-107); CREATININE FOR GFR 0.98 MG/DL (0.70-1.30); GLOMERULAR FILTRATION RATE > 60.0 (>60); GLUCOSE, FASTING 91 MG/DL (70-100); HEMATOCRIT 43.4 % (42.0-52.0); HEMOGLOBIN 15.1 g/dl (13.5-17.5); MEAN CORPUSCULAR HEMOGLOBIN 31.6 pg (27.0-33.0); MEAN CORPUSCULAR HGB CONC 34.8 g/dl (32.0-36.5); MEAN CORPUSCULAR VOLUME 90.8 fl (80.0-96.0); PLATELET COUNT, AUTOMATED 231 10^3/uL (150-450); POTASSIUM SERUM 4.2 MEQ/L (3.5-5.1); RED BLOOD COUNT 4.78 10^6/uL (4.30-6.10); SODIUM LEVEL 138 MEQ/L (136-145); TOTAL PROTEIN 7.1 GM/DL (6.4-8.2); WHITE BLOOD COUNT 6.4 10^3/uL (4.0-10.0)
== END ==
LOC: M SFHCADAM 13:36
PROVIDERS: ATTEND Physician Assistant
DX: M54.9 Dorsalgia, unspecified (principal)

== ENCOUNTER → 2019-01-22 | Outpatient (CLI) | payer OTHER ==
[~2019-01-22] MED LIST changes: +GASTROGRAFIN SOLUTION 30ML (Q9963) As Ordered ONE; +ISOVUE-370 76% 100ML VIAL (Q9967) As Ordered ONE
--- NOTE | 2019-01-22 17:28 | REP ---
CT ABDOMEN AND PELVIS WITH ORAL AND IV CONTRAST: TECHNIQUE: Axial contrast enhanced images from the lung bases to the pubic symphysis using 100 mL Isovue 370 intravenous contrast material with multiplanar reformations. No infiltrate is seen in either lung base. The liver is unremarkable. There is no evidence of biliary dilatation. There is a gallstone in the gallbladder which measures 2.1 cm in diameter. The spleen, adrenals and pancreas are unremarkable. There is a subcentimeter cyst in the lower pole of the right kidney. I suspect a punctate calcification in the mid left renal collecting system. No hydronephrosis is seen bilaterally. There is no abdominal aortic aneurysm. There is no free air or free fluid. There is no bowel wall thickening. There is no evidence of appendicitis. No anterior abdominal wall defect is seen. The urinary bladder is moderately distended and appears unremarkable. IMPRESSION: There is a 2.1 cm gallstone in the gallbladder without evidence of gallbladder wall edema or biliary dilatation. Punctate calcification in the left renal collecting system. No hydronephrosis bilaterally. No evidence of appendicitis. No free air or free fluid. Electronically Signed by Bennie Wright MD 01/23/2019 09:21 A
== END ==
LOC: M RAD 14:57
PROVIDERS: ATTEND Physician Assistant
DX: K80.20 Calculus of gallbladder without cholecystitis without obstruction (principal)
CPT/HCPCS: 74177; Q9963; Q9967

== ENCOUNTER 2019-03-30 05:11 | Emergency (ER) | payer OTHER ==
[~2019-03-30] VITALS: Ht 170.2 cm; Wt 79.1 kg
[~2019-03-30 05:11] MED LIST changes: -GASTROGRAFIN SOLUTION 30ML (Q9963) As Ordered ONE; -ISOVUE-370 76% 100ML VIAL (Q9967) As Ordered ONE
[2019-03-30] MEDS ORDERED: methylPREDNISolone INJ 125 MG/2 ML VIAL (J2930) IM ONE (06:45)
[2019-03-30] MEDS ORDERED: PRED20TA PO (07:08)
[2019-03-30 07:32] VITALS: BP 144/92
== END 2019-03-30 07:54 | disposition home or self-care (01) ==
LOC: M ED 05:11
DX: L50.1 Idiopathic urticaria (principal); Z79.01 Long term (current) use of anticoagulants; Z87.2 Personal history of diseases of the skin and subcutaneous tissue; Z91.048 Other nonmedicinal substance allergy status; Z86.711 Personal history of pulmonary embolism
CPT/HCPCS: 96372; 99283; J2930

== ENCOUNTER → 2020-09-02 | Outpatient (REF) | payer OTHER ==
[~2020-09-02] MED LIST changes: +ACET325T42 PO; -MAPA325T3 PO; +PRED20TA PO
[2020-09-02 16:45] LABS: BASO % 0.5 % (0.0-1.0); EOS # 0.1 10^3/uL (0.0-0.5); EOS % 2.4 % (0.0-3.0); HEMATOCRIT 45.8 % (42.0-52.0); HEMOGLOBIN 15.9 g/dl (13.5-17.5); LYMPH # 1.8 10^3/uL (1.5-5.0); LYMPH % 30.1 % (24.0-44.0); MEAN CORPUSCULAR HGB CONC 34.7 g/dl (32.0-36.5); MEAN CORPUSCULAR VOLUME 89.3 fl (80.0-96.0); MONO # 0.5 10^3/uL (0.0-0.8); MONO % 7.9 % (0.0-5.0); NEUTROPHILS # 3.5 10^3/uL (1.5-8.5); NEUTROPHILS % 58.8 % (36.0-66.0); PLATELET COUNT, AUTOMATED 231 10^3/uL (150-450); RED BLOOD COUNT 5.13 10^6/uL (4.30-6.10); WHITE BLOOD COUNT 5.9 10^3/uL (4.0-10.0)
[2020-09-02 16:49] LABS: ALBUMIN 4.3 GM/DL (3.2-5.2); ALT/SGPT 42 U/L (12-78); BILIRUBIN,TOTAL 0.8 MG/DL (0.2-1.0); BLOOD UREA NITROGEN 10 MG/DL (7-18); CALCIUM LEVEL 9.6 MG/DL (8.5-10.1); CARBON DIOXIDE LEVEL 31 MEQ/L (21-32); CHLORIDE LEVEL 105 MEQ/L (98-107); CREATININE FOR GFR 0.99 MG/DL (0.70-1.30); GLOMERULAR FILTRATION RATE > 60.0 (>60); GLUCOSE, FASTING 87 MG/DL (70-100); POTASSIUM SERUM 4.3 MEQ/L (3.5-5.1); SODIUM LEVEL 142 MEQ/L (136-145); TOTAL PROTEIN 7.6 GM/DL (6.4-8.2)
== END ==
LOC: M SFHCADAM 13:06
PROVIDERS: ATTEND Physician Assistant
DX: I27.82 Chronic pulmonary embolism (principal)

== ENCOUNTER → 2021-10-11 | Outpatient (REF) | payer OTHER ==
[2021-10-11 13:14] LABS: HEMATOCRIT 46.9 % (42.0-52.0); HEMOGLOBIN 16.4 g/dl (13.5-17.5); MEAN CORPUSCULAR HEMOGLOBIN 31.1 pg (27.0-33.0); PLATELET COUNT, AUTOMATED 183 10^3/uL (150-450); RED BLOOD COUNT 5.27 10^6/uL (4.30-6.10); WHITE BLOOD COUNT 5.1 10^3/uL (4.0-10.0)
[2021-10-11 13:40] LABS: ALBUMIN 4.1 GM/DL (3.2-5.2); ALT/SGPT 68 U/L (12-78); BILIRUBIN,TOTAL 0.7 MG/DL (0.2-1.0); BLOOD UREA NITROGEN 12 MG/DL (7-18); CALCIUM LEVEL 9.3 MG/DL (8.5-10.1); CARBON DIOXIDE LEVEL 28 MEQ/L (21-32); CHLORIDE LEVEL 110 MEQ/L (98-107); CREATININE FOR GFR 0.91 MG/DL (0.70-1.30); GLOMERULAR FILTRATION RATE > 60.0 (>60); GLUCOSE, FASTING 90 MG/DL (70-100); POTASSIUM SERUM 4.2 MEQ/L (3.5-5.1); SODIUM LEVEL 141 MEQ/L (136-145); TOTAL PROTEIN 7.3 GM/DL (6.4-8.2)
[2021-10-11 18:42] LABS: HEMOGLOBIN A1c 5.2 %
== END ==
LOC: M SFHCADAM 09:39
PROVIDERS: ATTEND Physician Assistant
DX: Z00.00 Encounter for general adult medical examination without abnormal findings (principal); D68.52 Prothrombin gene mutation; E66.3 Overweight; Z13.1 Encounter for screening for diabetes mellitus

== ENCOUNTER → 2023-03-19 | Outpatient (CLI) | payer OTHER | LOC: M ADAMS 15:40 | PROVIDERS: ATTEND Family Medicine | DX: M54.6 Pain in thoracic spine (principal) ==

== ENCOUNTER → 2023-10-23 | Outpatient (REF) | payer OTHER ==
[2023-10-23 14:04] LABS: MEAN CORPUSCULAR HEMOGLOBIN 32.4 pg (27.0-33.0); MEAN CORPUSCULAR HGB CONC 35.4 g/dl (32.0-36.5); MEAN CORPUSCULAR VOLUME 91.6 fl (80.0-96.0); PLATELET COUNT, AUTOMATED 202 10^3/uL (150-450); RED BLOOD COUNT 5.24 10^6/uL (4.30-6.10); WHITE BLOOD COUNT 5.3 10^3/uL (4.0-10.0)
[2023-10-23 14:29] LABS: ALBUMIN 4.1 G/DL (3.2-5.2); ALKALINE PHOSPHATASE 66 U/L (46-116); ALT/SGPT 41 U/L (7.0-40); AST/SGOT 29 U/L (<34); BILIRUBIN,TOTAL 1.2 MG/DL (0.3-1.2); BLOOD UREA NITROGEN 13 MG/DL (9-23); CALCIUM LEVEL 9.2 MG/DL (8.5-10.1); CARBON DIOXIDE LEVEL 27 MMOL/L (20-31); CHLORIDE LEVEL 107 MMOL/L (98-107); CHOLESTEROL LEVEL 215 MG/DL (<200); CHOLESTEROL RISK RATIO 5.77 (<5); CREATININE FOR GFR 0.88 MG/DL (0.70-1.30); GLOMERULAR FILTRATION RATE > 60.0 (>60); GLUCOSE, FASTING 80 MG/DL (60-100); HDL CHOLESTEROL 37.2 MG/DL (>40); NON-HDL-C 177.8 MG/DL; POTASSIUM SERUM 4.1 MMOL/L (3.5-5.1); SODIUM LEVEL 140 MMOL/L (136-145); TOTAL PROTEIN 6.9 G/DL (5.7-8.2); TRIGLYCERIDES LEVEL 264 MG/DL (<150)
== END ==
LOC: M SFHCADAM 08:03
PROVIDERS: ATTEND Physician Assistant
DX: Z13.220 Encounter for screening for lipoid disorders (principal); Z86.711 Personal history of pulmonary embolism

== ENCOUNTER → 2024-10-22 | Outpatient (CLI) | payer OTHER, BC | LOC: M ADAMS 09:02 | PROVIDERS: ATTEND Physician Assistant | DX: J20.9 Acute bronchitis, unspecified (principal) ==

== ENCOUNTER 2025-02-04 09:57 | Day surgery (SDC) | payer BC ==
[~2025-02-04] VITALS: Ht 170.2 cm; Wt 83.3 kg
[~2025-02-04 09:57] MED LIST changes: +LIDOCAINE 2% 100 MG/5 ML SDV (FOR ANES.) As Ordered ONE; +ZYRT10TA12 PO
[2025-02-04 11:30] VITALS: BP 154/95; TEMP 98.6; O2SAT 99
== END 2025-02-04 11:40 | disposition home or self-care (01) ==
LOC: M OPP 09:57
PROVIDERS: ATTEND Surgery
DX: Z12.11 Encounter for screening for malignant neoplasm of colon (principal); Z83.710 Family history of adenomatous and serrated polyps; Z79.01 Long term (current) use of anticoagulants; Z79.899 Other long term (current) drug therapy; Z86.711 Personal history of pulmonary embolism; Z87.891 Personal history of nicotine dependence